=== PATIENT | male | born 1930 | race Caucasian/White ===

== ENCOUNTER 2017-04-11 23:40 | Emergency (ER) | payer MEDICARE, OTHER ==
[~2017-04-11 23:40] MED LIST: ARICEPT10 MG PO; ASPIR 8181 MG PO; CLARITIN10 MG PO; HUMIBID LA TAB600 MG PO; LOPRESSOR50 MG PO; MOBIC7.5 MG PO; NASAL DECONGES120 MG PO; OMEGA 3 1,0001 EACH PO; PLAVIX 75 MG TA75 MG PO; PLETAL 100 MG100 MG PO; PROTONIX40 MG PO; SIMVASTATIN20 MG PO; TOPROL XL50 MG PO; TYLENOL 325MG325 MG PO; VITAMIN D 11000 UNIT PO; VITAMIN D31000 UNI1 PO; ZOLOFT100 MG PO
[2017-04-12 02:09] LABS: HEMOGLOBIN 12.8 gm/dl (14.0-17.5); RED BLOOD COUNT 4.81 M/UL (4.20-5.50)
[2017-04-12 03:06] LABS: BUN/CREATININE RATIO 20 (0-10)
== END 2017-04-12 11:45 | disposition home or self-care (01) ==
LOC: ER1 23:40
PROVIDERS: Specialist/Technologist Athletic Trainer
DX: R07.89 Other chest pain (principal); I10 Essential (primary) hypertension; I51.9 Heart disease, unspecified; Z95.1 Presence of aortocoronary bypass graft; Z79.82 Long term (current) use of aspirin; Z79.899 Other long term (current) drug therapy
CPT/HCPCS: 36415; 71010; 71260; 80053; 82550; 82553; 83874; 83880; 84484; 85025; 93005; 96361; 96374; 99285; C9113; J7050; Q9962